=== PATIENT | male | born 1975 | race Caucasian/White ===

== ENCOUNTER 2016-11-01 03:37 | Emergency (ER) | payer MEDICAID ==
--- NOTE | ~2016-11-01 | EKG ---
PATIENT: HOWARD HAYES UNIT #: [id number] Ventricular Rate: 128 BPM Atrial Rate: 128 BPM P-R Interval: 148 ms QRS Duration: 104 ms Q-T Interval: 402 ms QTC Calculation(Bezet): 586 ms P [place]: 38 degrees Calculated R [place]: 90 degrees Calculated T [place]: 31 degrees Diagnosis Line: Sinus tachycardia with occasional Premature Diagnosis Line: ventricular complexes Diagnosis Line: Rightward axis Diagnosis Line: Borderline ECG Diagnosis Line: No previous ECGs available Diagnosis Line: Confirmed by AMERICA FOX MD ([id number]) on Diagnosis Line: 11/01/2016 9:06:05 AM INTERPRETING MD: RUDDY DUNN
--- NOTE | ~2016-11-01 | CT16 ---
[facility] A Service of [facility] RADIOLOGY TEXT RESULTS PATIENT: HOWARD HAYES LOCATION: [facility] : 75 UNIT #: [id number] AGE: [address]: Vidhi Khan MD SEX: M ORDER DR: [id number] [facility] [address] [place], [place] [address] [id number] E MR#: [id number] Acc #: [id number] NAME: HOWARD HAYES : 1975 SEX: M STUDY DATE/TIME: 11/01/2016 7:02 UNIT: [facility] ROOM: STUDY DESCRIPTION: CT Angio Chest for PE Attending Physician: Vidhi Khan M.D. Ordering Physician: Jett Mcleod P.A.-C. MEDICAL IMAGING REPORT This report is preliminary unless electronic signature is present EXAM CT angiography chest for PE 11/01/2016 HISTORY Chest pain, short of air. Abdomen pain today getting worse. Left side chest pain left side [address] pulmonary angiography performed with intravenous administration of 100 mL Isovue-370. Three-dimensional reconstructions performed through the pulmonary arteries. Comparison is 07/05/2015. This CT examination was performed with one or more of the following radiation dose reduction techniques: automatic exposure control, adjustment of mA and/or kV according to patient size, and iterative reconstruction. Thyroid unremarkable. No axillary, mediastinal or hilar adenopathy. Heart is normal in size. No pleural effusions. Liver appears somewhat diminished in density suggesting fatty infiltration. No focal hepatic parenchymal abnormality. The gallbladder, spleen, pancreas and adrenal glands are unremarkable. No hydronephrosis. No perinephric inflammatory change, cystic or solid mass lesion suggested. CT PELVIS: No inguinal adenopathy. The urinary bladder is unremarkable. No pelvic or retroperitoneal adenopathy. The esophagus, stomach, small bowel remarkable. I believe the patient retains a normal appendix. There does appear to be a small appendicolith in the proximal appendix. There is no appendiceal inflammatory change. The colon is unremarkable. Pulmonary parenchyma shows stable bleb right lung base. There is no clear indication of acute infectious or inflammatory disease. 6 mm noncalcified nodule in the right lower lobe unchanged from June 2015. In the left lower lobe, there is a lobulated nodule measuring 1.7 cm x 1 cm x 2.2 cm. It previously measured 1.6 cm x 1.4 cm x 2.2 cm. It does appear to have decreased slightly in volume from the prior examination. Stability to [facility] A Service of [facility] RADIOLOGY TEXT RESULTS PATIENT: HOWARD HAYES LOCATION: [facility] : 75 UNIT #: [id number] AGE: [address]: Vidhi Khan MD SEX: M ORDER DR: decreasing size over this time interval would favor benign etiology. Malignancy remains in the differential diagnosis though is felt less likely. Please correlate with any interval diagnostic assessment. Correlation with PET/CT may remain valuable if not performed in the interval. No entirely new nodules are seen. There is no evidence of acute infectious or inflammatory disease. No pneumothorax. Pulmonary arteries are well opacified. No PE. Dilatation of the aortic root measuring 4.2 cm in diameter at level of sinuses of Valsalva. No change from prior study. Remainder of the visualized aorta is normal in caliber. The visualized aortic branch vessels are patent. The bony structures show degenerative change in the spine. There is no acute-appearing bony abnormality. Study degraded by patient obesity. IMPRESSION 1. Study degraded by patient obesity. No PE. The aortic root is dilated at 4.2 cm in diameter at level of sinuses of Valsalva. No change from June 2015. Remainder of aorta normal in caliber. No dissection. Visualized aortic branch vessels are patent. 2. There is no evidence of acute pulmonary disease. Stable 6 mm noncalcified nodule in the right lower lobe unchanged from studies dating to 2010 and felt to be benign in nature. There is a lobulated posteromedial left lower lobe nodule measuring 1.7 cm x 1 cm x 2.2 cm, previously 1.6 cm x 1.4 cm x 2.2 cm in June 2015. It does appear to have decreased some in overall volume from the prior examination. Stability to slight decrease in size from June 2015 would favor benign etiology but the nature of this nodule remains unclear. Please correlate with any diagnostic assessment performed in the interval. On prior study, CT/PET scan was recommended for further assessment. Please correlate with any interval CT/PET scan. CT/PET scan may provide additional characterization at this time as well if not performed in the interval. 3. Fatty infiltration of the liver. No acute abnormality seen below diaphragm. Dictated by... Jett Campos M.D. THIS IS AN ELECTRONICALLY VERIFIED REPORT Jett Campos M.D. at 11/04/2016 7:52 AM KASEY/adan TD: 11/01/2016 10:32 JOB #: [id number] [facility] A Service of [facility] RADIOLOGY TEXT RESULTS PATIENT: HOWARD HAYES LOCATION: [facility] #: [id number] : 75 UNIT #: [id number] AGE: [address]: Vidhi Khan MD SEX: M ORDER DR: MEDICAL IMAGING REPORT Page 1 of 1 COPY
--- NOTE | ~2016-11-01 | CT2 ---
[facility] A Service of [facility] RADIOLOGY TEXT RESULTS PATIENT: HOWARD HAYES LOCATION: [facility] : 75 UNIT #: [id number] AGE: [address]: Vidhi Khan MD SEX: M ORDER DR: [id number] [facility] [address] [place], [place] [address] [id number] E MR#: [id number] [facility] #: [id number] NAME: HOWARD HAYES : 1975 SEX: M STUDY DATE/TIME: 11/01/2016 7:02 UNIT: [facility] ROOM: STUDY DESCRIPTION: CT Abd and Pelv W Cont Attending Physician: Vidhi Khan M.D. Ordering Physician: Jett Mcleod P.A.-C. MEDICAL IMAGING REPORT This report is preliminary unless electronic signature is present EXAM CT abdomen and pelvis 11/01/2016 HISTORY Chest pain, short of air. Abdomen pain today, getting worse. Left side chest pain. TECHNIQUE CT of the abdomen and pelvis performed with intravenous administration of 100 mL Isovue-370. This CT exam was performed with one or more of the following radiation dose reduction techniques: automatic exposure control, adjustment of mA and/or kV according to patient size, and iterative reconstruction. COMPARISON No comparison CT abdomen and pelvis. Please see today's dedicated CT chest for discussion of findings above diaphragm. FINDINGS CT ABDOMEN: The liver appears relatively low in overall density, suggesting fatty infiltration. The liver is enlarged, measuring 21 cm in craniocaudal extent. No suspicious focal abnormality. There is a calcified granuloma suggested in the posterior right hepatic lobe. The gallbladder, spleen, pancreas, adrenal glands, and kidneys are unremarkable. No hydronephrosis. No perinephric inflammatory change. CT PELVIS: No inguinal adenopathy. The urinary bladder is unremarkable. No free fluid in the pelvis. There is no pelvic or retroperitoneal adenopathy. The distal esophagus, stomach, and small bowel unremarkable. The appendix shows no acute abnormality. There is a small appendicolith in the proximal appendix with no appendiceal inflammatory change. The colon is unremarkable. [facility] A Service of [facility] & [facility] RADIOLOGY TEXT RESULTS PATIENT: HOWARD HAYES LOCATION: [facility] : 75 UNIT #: [id number] AGE: [address]: Vidhi Khan MD SEX: M ORDER DR: Aorta normal in caliber. Degenerative changes in the spine. There is moderate to severe compression deformity of the L2 vertebral body. This is very difficult to assess, given CT artifact related to the patient's marked obesity. The appearance suggests chronic compression deformity. I see no acute-appearing fracture plane. There is retropulsion of the posterosuperior L2 vertebral body cortex with mild central spinal canal narrowing suggested. The L1-L2 and L2-L3 neural foramina are patent without clear indication of exiting nerve impingement. There is mild loss of height in the T11 vertebral body, also felt to be chronic in time course. IMPRESSION 1. Study is limited in the absence of enteric contrast. Study also somewhat limited secondary to the patient's obesity. No clearly acute abnormality is seen within the abdomen or pelvis. 2. Fatty infiltration of the liver. Hepatic enlargement. Liver measures about 21 cm in craniocaudal extent. No suspicious focal hepatic parenchymal abnormality. 3. Gallbladder, pancreas, kidneys unremarkable. 4. Tiny appendicolith at proximal appendix. Appendix otherwise normal in appearance. There is no evidence of appendiceal inflammation. 5. No small bowel or colonic dilatation. 6. Moderate to severe compression deformity L2 vertebral body. Appearance favors chronic time course. Mild posterosuperior vertebral body cortex retropulsion. No free fragment suggested. Only mild central spinal canal narrowing. No clearly acute bony abnormality. Assessment limited by technical factors described above. Dictated by... Jett Campos M.D. THIS IS AN ELECTRONICALLY VERIFIED REPORT Jett Campos M.D. at 11/04/2016 7:52 AM KASEY/mahesh TD: 11/01/2016 11:39 JOB #: [id number] MEDICAL IMAGING REPORT Page 1 of 1 COPY
[~2016-11-01 03:37] MED LIST: CLEOCIN; COUMADIN5 MG PO; DILANTIN PO; KEPPRA500 M2 PO; LASIX PO; LISINOPRIL-HCTZ1 T17 PO; LISINOPRIL20 MG PO; LOVENOX SUBQ; LOVENOX120 MG/0.8 INJ; LOVENOX150 MG/ML SQ; NO MEDICATIONS; NORCO 10-325 TA1 TAB PO; NORCO1 TAB 10/3; OXYCODONE HCL5 MG PO; OXYIR5 MG PO; PERCOCET7.5 PO; PHENYTOIN SODI100 M4 PO; PRINIVIL20 M1 PO; ROXICODONE30 M1; TYLENOL #3 PO; TYLENOL/CODEINE1 TA1 PO; XARELTO15 MG PO; XARELTO20 MG PO
[2016-11-01 05:01] LABS: POC - CKMB <1.0 ng/mL (0.0-7.9); POC - TROPONIN <0.05 ng/mL (<=0.05)
[2016-11-01 05:03] LABS: URINE SOURCE CLEAN CATCH
[2016-11-01 05:11] LABS: BASOPHIL% 0.4 % (0-2.5); EOSINOPHIL# 0.1 X10e3 (0-0.7); EOSINOPHIL% 2.7 % (0.0-7.0); HEMOGLOBIN 16.8 gm/dL (13.0-16.0); LYMPHOCYTE# 1.5 X10e3 (1.0-3.5); LYMPHOCYTE% 28.9 % (17.0-45.0); MEAN CELL VOLUME 90.2 FL (83-96); MEAN CORPUSCULAR HEMOGLOBIN 30.9 PG (28-34); MEAN CORPUSCULAR HGB CONC 34.2 g/dL (30-36); MEAN PLATELET VOLUME 7.5 FL (6.5-11.5); MONOCYTE# 0.5 X10e3 (0-1.0); MONOCYTE% 10.1 % (3.0-12.0); NEUTROPHIL% 57.9 % (40-75); PLATELET COUNT 155 X10e3 (140-420); RED BLOOD COUNT 5.44 X10e (3.90-5.60); RED CELL DISTRIBUTION WIDTH 14.4 % (11.0-15.5); WHITE BLOOD COUNT 5.2 X10e3 (4.0-10.5)
[2016-11-01 05:20] LABS: DIFF IND NO
[2016-11-01 06:19] LABS: ALBUMIN SERUM 4.1 g/dL (3.5-5.0); ALKALINE PHOSPHATASE 76 U/L (32-92); ALT (SGPT) 40 U/L (10-40); AST (SGOT) 52 U/L (10-42); BILIRUBIN, DIRECT 0.2 mg/dL (0.0-0.2); BILIRUBIN,INDIRECT 0.5 mg/dL (0.0-0.9); BILIRUBIN,TOTAL 0.7 mg/dL (0.2-2.0); BLOOD UREA NITROGEN 9 mg/dL (9-23); BUN/CREATININE RATIO 12.85; CALCIUM SERUM 9.3 mg/dL (8.4-10.2); CARBON DIOXIDE 25 mmol/L (22-31); CHLORIDE 99 mmol/L (100-111); CREATININE SERUM 0.7 mg/dL (0.6-1.4); GLOM FILT RATE Estimated 117.3 mL/min (>60); GLUCOSE FASTING 120 mg/dL (70-110); LIPASE 60 U/L (22-51); POTASSIUM 3.2 mmol/L (3.5-5.1); PROTEIN TOTAL SERUM 7.5 g/dL (6.0-8.3); SODIUM 137 mmol/L (135-145)
[2016-11-01 06:20] LABS: DILANTIN (PHENYTOIN) <2.5 ug/mL (10.0-20.0)
[2016-11-01 06:24] LABS: URINE APPEARANCE CLEAR; URINE BILIRUBIN NEG (NEG); URINE BLOOD TRACE (NEG); URINE COLOR DK YELLOW; URINE GLUCOSE NEG (NEG); URINE KETONE NEG (NEG); URINE LEUKOCYTE ESTERASE NEG (NEG); URINE NITRATE NEG (NEG); URINE PROTEIN 3+ (NEG); URINE SPECIFIC GRAVITY 1.018 (1.003-1.035)
[2016-11-01 06:29] LABS: URINE BACTERIA AUWI NEG (NEGATIVE); URINE SQUAMOUS EPITHELIAL CELL OCC /[HPF]; UWBCS1 AUWI 0-2 (0-5)
[2016-11-01 06:42] LABS: CULTURE INDICATED? NO; U HYALINE CASTS AUWI 25-50 /[LPF]; URINE AMORPHOUS SEDIMENT AMORP URATES; URINE YEAST PRESENT
[2016-11-01 06:56] LABS: POC - CKMB <1.0 ng/mL (0.0-7.9); POC - TROPONIN <0.05 ng/mL (<=0.05)
== END 2016-11-01 10:06 | disposition home or self-care (01) ==
LOC: CED 03:37
PROVIDERS: Emergency Medicine; Physician Assistant
DX: R10.84 Generalized abdominal pain (principal); R11.2 Nausea with vomiting, unspecified; R19.7 Diarrhea, unspecified; R07.9 Chest pain, unspecified; R06.02 Shortness of breath; G40.909 Epilepsy, unspecified, not intractable, without status epilepticus; Z86.718 Personal history of other venous thrombosis and embolism; Z86.711 Personal history of pulmonary embolism
CPT/HCPCS: 36415; 71275; 74177; 80048; 80076; 80185; 81003; 82553; 83690; 84484; 85025; 93005; 96361; 96374; 96375; 99284; C9113; J2405; Q9967

== ENCOUNTER 2016-11-20 12:32 | Inpatient (IN) | payer MEDICAID ==
[~2016-11-20] VITALS: Ht 195.6 cm; Wt 190.0 kg
--- NOTE | ~2016-11-20 | DS ---
Unit #: [id number] #: [id number] Patient: HOWARD HAYES [id number] [facility] [address] [place], [place] [address] [id number] I MR#: [id number] NAME: HOWARD HAYES ROOM: 550 Age: 41 Sex: M Admission Date: 11/20/2016 : 1975 Discharge Date: Attending Physician: Charmaine Castro M.D. Primary Care Physician: No Primary Care Physician DISCHARGE SUMMARY ADDENDUM The patient fell in the hospital, and he insisted he wanted MRI of his back. Because of morbid obesity, the patient needs to go to [facility] for open MRI. MRI of the lumbar spine shows chronic compression fracture at L2 vertebral body, height loss of 65% to 75%. When compared to previous study, more prominence of epidural fat throughout the lumbar spine; varying degrees of narrowing of thecal sac present; bulges noted at multiple levels, worse at L4-L5 with moderately severe narrowed thecal sac. Currently the patient is ambulating with mild pain. The patient is receiving Lortab. I gave prescription for Lortab. I recommended to him that he needs to see a spinal doctor. We do not have a spine surgeon at [facility] who can do any surgery, so he will follow with his spine doctor of his choice. The patient understands the instructions that he needs to see a spinal surgeon. Follow with family physician in 1 week time. Follow with Dr. Cosby for PE in 1 week time. Continue with Xarelto. The patient was given Xarelto and Lortab prescriptions. NOTE: Discharge time taken is 31 minutes. Dictated by... Obie Pelayo TD: 11/26/2016 15:31 JOB #: [id number] DISCHARGE SUMMARY Page 1 of 1 X Charmaine Castro MD DISCHARGE SUMMARY
--- NOTE | ~2016-11-20 | CT16 ---
[facility] A Service of [facility] RADIOLOGY TEXT RESULTS PATIENT: HOWARD HAYES LOCATION: C5 550-01 : 75 UNIT #: [id number] AGE: [address]: Charmaine Castro MD SEX: M ORDER DR: [id number] [facility] [address] [place], [place] [address] [id number] E MR#: [id number] Acc #: [id number] NAME: HOWARD HAYES. : 1975 SEX: M STUDY DATE/TIME: 11/20/2016 15:40 UNIT: [facility] ROOM: STUDY DESCRIPTION: CT Angio Chest for PE Attending Physician: Garland Smith D.O. Ordering Physician: Garland Smith D.O. Primary Care Physician: No Primary Care Physician MEDICAL IMAGING REPORT This report is preliminary unless electronic signature is present EXAM Chest CT angiogram with contrast. DATE OF STUDY 11/20/2016 PROCEDURE Axial contrast-enhanced chest CT angiogram with three-dimensional reformats. Two contrast administration and imaging runs were performed due to difficulty with bolus timing on the initial scan. This CT exam was performed with one or more of the following radiation dose reduction techniques: automatic exposure control, adjustment of mA and/or kV according to patient size, and iterative reconstruction. CLINICAL HISTORY Right leg swelling and pain behind right knee, shortness of air and dyspnea for 2 weeks. COMPARISON Comparison exam is dated 11/01/2016 FINDINGS There is no consolidation or effusion or pneumothorax. Solid noncalcified nodules in both lower lobes are seen. Please see lengthy discussion in the report of the 11/01/[address] regarding management and followup recommendations. No new nodules are seen. Bolus timing is good and the study is unequivocally positive for moderately extensive pulmonary embolism involving multiple right upper lobe branches, as well as several right lower lobe segmental branches, [facility] RADIOLOGY TEXT RESULTS PATIENT: HOWARD HAYES LOCATION: C[facility] 550 : 75 UNIT #: [id number] AGE: [address]: Charmaine Castro MD SEX: M ORDER DR: well as the left lingular and anterior basilar segmental branch. Images of the upper abdomen show fatty infiltration but are otherwise negative and the thoracic aorta remains normal in caliber. IMPRESSION 1. Study is not unequivocally positive for moderately extensive pulmonary embolism. There is embolization to the right upper lobe, multiple branches, and at least two right lower lobe segmental branches, the left lower lobe anterior basilar segmental branch and the lingular artery. 2. There is a normal thoracic aorta and there is fatty infiltration of the liver as seen previously. 3. There are noncalcified nodules in both the right lower and left lower lobes. Please see extensive dictated recommendations regarding followup of these nodules on the report of the 11/01/[address] angiogram. There has been no change in the lung parenchyma since the time of that exam. STAT * RESULT Dictated by... Arturo Cardenas M.D. THIS IS AN ELECTRONICALLY VERIFIED REPORT Arturo Cardenas M.D. at 11/21/2016 11:45 AM MAEGAN/tamar TD: 11/20/2016 16:58 JOB #: [id number] MEDICAL IMAGING REPORT Page 1 of 1 COPY
--- NOTE | ~2016-11-20 | MR112 ---
[facility] A Service of [facility] RADIOLOGY TEXT RESULTS PATIENT: HOWARD HAYES LOCATION: [facility] 550-01 : 75 UNIT #: [id number] AGE: [address]: Charmaine Castro MD SEX: M ORDER DR: [id number] [facility] [address] [place], [place] [address] [id number] I MR#: [id number] Acc #: [id number] NAME: HOWARD HAYES. : 1975 SEX: M STUDY DATE/TIME: 11/25/2016 13:02 UNIT: [facility] ROOM: [facility] STUDY DESCRIPTION: MR Lumbar WWo Contrast Attending Physician: Charmaine Castro M.D. Ordering Physician: Ana Young M.D. Primary Care Physician: Primary Care Physician No MEDICAL IMAGING REPORT This report is preliminary unless electronic signature is present EXAM MR of the lumbar spine with and without contrast, 11/25/2016 COMPARISON Plain films lumbar spine dated 04/25/2015, MRI lumbar spine without contrast dated 10/06/2008. HISTORY Status post fall on 11/23/2016. Increased low back pain and decreased mobility for the past two days. FINDINGS Multisequence multiplanar imaging of the lumbar spine was obtained without contrast. There is a fracture noted at the L2 vertebral body without any edema favoring chronic compression injury. It is new when compared to the prior MRI from 2008. Fracture lines extending vertically along with compression deformity of the endplates are noted. Maximal vertebral body height loss is probably about 65% to 70%. Minimal retropulsion of posterior superior fragment into the canal causing mild mass effect on the adjacent thecal sac is probably present. There is superior endplate compression deformity with small Schmorl's node in the superior and inferior endplate at L1. Small Schmorl's nodes are also noted in the L3 to L5 vertebral bodies. Chronic. No bone edema is seen. The conus terminates at L1. Signal of conus and cauda equina are grossly unremarkable. Pre and paravertebral soft tissues do not demonstrate any significant abnormality. There is a mass effect on the thecal sac of the lumbar spine, predominantly in the posterior aspect due to some prominence of fat pad, particularly at the level of L3-4 to L5-S1 suspicious for epidural lipomatosis. It is noted to some extend along the anterior aspect also. Pre and paravertebral soft tissues do not demonstrate any significant abnormality. [facility] A Service of [facility] RADIOLOGY TEXT RESULTS PATIENT: HOWARD HAYES LOCATION: [facility] : 75 UNIT #: [id number] AGE: [address]: Charmaine Castro MD SEX: M ORDER DR: L1-2: Disc osteophyte complex with mild bilateral facet changes. No significant neural foraminal narrowing. There is some mass effect on the thecal sac along the lateral aspect on both sides causing narrowing of the thecal sac. New. L2-3: Disc osteophyte complex without neural foraminal narrowing. Mild bilateral facet changes are noted. Prominent epidural fat is seen on both sides of the thecal sac causing [id number] mass effect on the thecal sac, new when compared to the prior study. L3-4: Concentric disc bulge with mild bilateral facet changes. No significant neural foraminal narrowing. There is some prominence of epidural fat pad noted on both sides of the thecal sac causing moderate narrowing. L4-5: Moderate disc bulge with superimposed right to left central protrusion. Mild bilateral facet changes are noted. There are bilateral foraminal to extraforaminal broad-based protrusions with mild inferior bilateral neural foraminal narrowing and mild bilateral lateral recess encroachment. L5-S1: Disc osteophyte complex with mild bilateral facet hypertrophic changes. Mild bilateral neural foraminal narrowing is noted along the inferior aspect. Thecal sac is very narrowed at this level. It is likely due to prominence of epidural fat, new when compared to the prior study. Previously noted large disc extrusion at L5-S1 is now not seen. IMPRESSION 1. Chronic compression fracture of L2 vertebral body is noted with a maximum vertebral body height loss of 65% to 75%. There is mild retropulsion of bony fragment posteriorly into the canal causing mild mass effect on the adjacent thecal sac, new since 2008. 2. When compared to the previous study there is more prominence of the epidural fat throughout the lumbar spine causing varying degrees of narrowing of the thecal sac. It is new since prior study and is suggestive of epidural lipomatosis. 3. Bulges are noted at multiple levels, but relatively worse at L4-5 with right to left central broad-based protrusion with mild bilateral neural foraminal narrowing and mild bilateral lateral recess encroachment with moderate to severely narrowed thecal sac. 4. There is a very tiny thecal sac noted at the level of L5-S1. This has to be noted, particularly when doing lumbar punctures. Previously noted large disc extrusion at L5-S1 is now not seen. 5. Refer above to the detailed report. STUDY WAS PERMORMED AT [facility] A Service of [facility] RADIOLOGY TEXT RESULTS PATIENT: HOWARD HAYES LOCATION: [place] [address] : 75 UNIT #: [id number] AGE: [address]: Charmaine Castro MD SEX: M ORDER DR: Dictated by... Chan Palafox M.D. THIS IS AN ELECTRONICALLY VERIFIED REPORT Chan Palafox M.D. at 11/27/2016 3:17 PM CPR/ljasael TD: 11/25/2016 23:20 JOB #: [id number] MEDICAL IMAGING REPORT Page 1 of 1 COPY
--- NOTE | ~2016-11-20 | DS ---
Unit #: [id number] #: [id number] Patient: HOWARD HAYES [id number] [address] [place], [place] [address] [id number] I MR#: [id number] NAME: HOWARD HAYES. ROOM: 550 Age: Sex: M Admission Date: 11/20/2016 : 1975 Discharge Date: Attending Physician: Charmaine Castro M.D. Primary Care Physician: Primary Care Physician No DISCHARGE SUMMARY DISCHARGE DIAGNOSES 1. Bilateral extensive pulmonary embolism 2. Noncompliance with Xarelto 3. History of deep venous thrombosis and pulmonary embolism 4. Left lower lobe nodule, needs outpatient follow up with Dr. Petersen 5. Transaminitis 6. History of seizure disorder, on Keppra 7. Chronic back pain 8. Morbid obesity CONSULTS Dr. Nicola Cosby PROCEDURES None DIAGNOSTIC STUDIES LABORATORY: WBC 4.0, hemoglobin 15.0, platelets 114. Troponin negative. IMAGING: CT angio chest shows moderately extensive pulmonary embolism. CARDIOLOGY: Echocardiogram shows ejection fraction 50%. Moderately enlarged right atrium, moderately dilated right ventricle. ALLERGIES None DISCHARGE MEDICATIONS 1. Xarelto, start as directed. After completion of the starter pack continue 20 mg p.o. daily 2. Keppra 750 p.o. b.i.d. HOSPITAL COURSE 41-year-old admitted with leg swelling. 1. Acute bilateral extensive pulmonary embolism. The patient does have history of deep venous thrombosis and pulmonary embolism. He is noncompliant with his Xarelto. The patient was started on IV heparin. The patient is seen by pulmonary, Dr. Petersen and Dr. Cosby. They recommended back on Xarelto. I gave him a starter pack followed by 20 mg p.o. daily. Prescription given. I advised him to take the medication as directed and the patient cannot miss it. I also educated him that he has a high risk for recurrent pulmonary embolism Unit #: [id number] #: [id number] Patient: HOWARD HAYES if he does not take his medication and patient understood the instructions. 2. Enlarged right ventricle likely from pulmonary embolism, also might have possible obstructive sleep apnea, follow up outpatient. 3. Lung nodule, stable. The patient needs repeat CT in six months time. Dr. Petersen is going to follow. DISCHARGE INSTRUCTIONS Discharge home. Follow with family physician in one weeks' time and follow with Dr. Petersen in two to three weeks time. Follow with Dr. Cosby in one weeks' time. TIME SPENT Discharge time taken is 31 minutes Dictated by... Charmaine Castro M.D. KENDRICK/flavio TD: 11/23/2016 11:23 JOB #: [id number] CC: Adin Petersen M.D. DISCHARGE SUMMARY Page 1 of 1 X Charmaine Castro MD X DISCHARGE SUMMARY
--- NOTE | ~2016-11-20 | CT71 ---
[facility] A Service [facility] RADIOLOGY TEXT RESULTS PATIENT: HOWARD HAYES LOCATION: [facility] : 75 UNIT #: [id number] AGE: [address]: Charmaine Castro MD SEX: M ORDER DR: [id number] [address] [place], [place] [address] [id number] I MR#: [id number] Acc #: [id number] NAME: HOWARD HAYES. : 1975 SEX: M STUDY DATE/TIME: 11/23/2016 15:15 UNIT: [facility] ROOM: [facility] STUDY DESCRIPTION: CT Head Wo Contrast Attending Physician: Charmaine Castro M.D. Ordering Physician: Charmaine Castro M.D. Primary Care Physician: No Primary Care Physician MEDICAL IMAGING REPORT This report is preliminary unless electronic signature is present EXAM Noncontrast head CT. HISTORY Fell 1 hour ago in hospital room, hit back of head. Questionable loss of consciousness. Admitted for bilateral pulmonary emboli. COMPARISON CT 04/16/[address] exam was performed with one or more of the following radiation dose reduction techniques: automatic exposure control, adjustment of mA and/or kV according to patient size, and iterative reconstruction. Axial noncontrast imaging brain was performed. FINDINGS Slight motion degradation. No definite hemorrhage or abnormal extraaxial fluid collections. Ventricles, sulci and basilar cisterns unremarkable. Small right maxillary sinus mucous retention cyst. IMPRESSION No acute intracranial abnormality identified. Dictated by... Jennifer Resendiz M.D. THIS IS AN ELECTRONICALLY VERIFIED REPORT Jennifer Resendiz M.D. at 11/23/2016 9:39 PM [facility] Service [facility] RADIOLOGY TEXT RESULTS PATIENT: HOWARD HAYES LOCATION: [facility] : 75 UNIT #: [id number] AGE: [address]: Charmaine Castro MD SEX: M ORDER DR: Jerald TD: 11/23/2016 18:45 JOB #: [id number] MEDICAL IMAGING REPORT Page 1 of 1 COPY
--- NOTE | ~2016-11-20 | CO ---
Unit #: [id number] #: [id number] Patient: HOWARD HAYES [id number] [address] [place], [place] [address] [id number] I MR#: [id number] NAME: HOWARD HAYES. ROOM: 550 Age: 41 Sex: M Admission Date: 11/20/2016 : 1975 Attending Physician: Charmaine Castro M.D. CONSULTATION REPORT CHIEF COMPLAINT Recurrent PE, DVT, morbid obesity, bilateral lung nodules, stable, nonsmoker. HISTORY OF PRESENT ILLNESS This is a 41-year-old male who I saw in 2012. Patient had a DVT and PE. His hypercoagulable workup was normal. Because of his obesity, he was on lifelong Xarelto. He recently quit. Patient came with shortness of breath and chest pain. Patient had a CT of the chest, PE protocol, on November 20, 2016, and there are bilateral PEs. Patient had a recent CT of the chest during October 2016, and patient has bilateral lung nodules. The left side is about 2.2 cm. They are stable. At present, he is taking heparin and he is tolerating. He could not buy Xarelto because he changed jobs and lost insurance. PAST MEDICAL HISTORY 1. Recurrent PEs and DVTs, workup normal. 2. Sleep apnea. 3. Morbid obesity. PAST SURGICAL HISTORY None. ALLERGIES None. SOCIAL HISTORY No smoking, no alcohol, and no drugs. FAMILY HISTORY Father and mother had malignancy. He is not sure of the exact type. REVIEW OF SYSTEMS CONSTITUTIONAL: No fever, no chills, no sweats, no weight loss. EYES: No visual symptoms. EARS, NOSE AND THROAT: There is no runny nose or sore throat or difficulty hearing. CARDIOVASCULAR: No chest pain. No shortness of breath. No palpitations. No orthopnea. No PND. RESPIRATORY: As mentioned above. GASTROINTESTINAL: No nausea, vomiting, diarrhea, constipation, hematochezia or melena. Unit #: [id number] #: [id number] Patient: HOWARD HAYES GENITOURINARY: No urinary frequency, hesitancy or urgency. No blood in the urine. MUSCULOSKELETAL: No muscle or joint pain. NEUROLOGIC: No headache. No numbness or tingling. No weakness. No seizure. PSYCHIATRIC: No anxiety, depression or mood disturbance. ENDOCRINE: No excessive urination or thirst. DERMATOLOGIC: No rash or change in the skin. ALLERGIC/IMMUNOLOGIC: No symptoms. HEMATOLOGIC/LYMPHATIC: Denies any symptoms. PHYSICAL EXAMINATION VITAL SIGNS: Temperature 99.4, pulse 80, respiratory rate 20, O2 saturation on 2 liters 95%, and blood pressure 126/82. Weight is 440 pounds. BMI is 52. ASSESSMENT AND PLAN This 41-year-old male has the following active issues: 1. Pulmonary embolism. Patient has had recurrent pulmonary emboli. He also has a history of deep venous thrombosis. In my office in 2012, I did hypercoagulable workup which was all normal. This is most likely due to his morbid obesity. He is on lifelong anticoagulation. At present, he is on heparin. In a couple of days, he can go home on Xarelto. 2. Obesity. I had an extensive discussion with patient. I counseled him to cut down on caloric intake and increase physical activity. He may benefit from Lap-Band. 1. Dictated by... Obie Odonnell/augusto TD: 11/21/2016 22:02 JOB #: [id number] CONSULTATION REPORT Page 1 of 1 X Elizabeth Cosby MD CONSULTATION REPORT
--- NOTE | ~2016-11-20 | HP ---
Unit #: [id number] #: [id number] Patient: HOWARD HAYES [id number] [facility] [address] [facility]. [place], [place] [address] [id number] MR#: [id number] NAME: HOWARD HAYES. ROOM: Age: 41 Sex: M Admission Date: 11/20/2016 : 1975 Attending Physician: Garland Smith D.O. HISTORY AND PHYSICAL CHIEF COMPLAINT Right leg swelling and pain behind knee. HISTORY OF PRESENT ILLNESS The patient is a 41-year-old male with a past medical history of DVT/pulmonary emboli, seizure disorder, chronic back pain, and morbid obesity, who presented to the emergency department for evaluation of the above. The patient states that he has had approximately a one and a half week history of increasing right leg pain and pain behind the knee similar to when he has had a blood clot in the past. He also reports increasing shortness of breath and intermittently productive cough. He states that he has had paroxysmal nocturnal dyspnea. He states that he has had pain in the mid chest that he describes as "cramping." It has been intermittent in nature. In the emergency department, initial pulse and blood pressure were 104 and 146/92, respectively, and oxygen saturation was 98% on room air. A right lower extremity venous Doppler was done and negative. CT of the chest, PE protocol, showed moderately extensive bilateral PEs. He is being admitted to [facility] for evaluation and further treatment. PAST MEDICAL HISTORY 1. Admission to [facility] July 04-2015, for right lower extremity DVT. He was noted to have a lung mass during that admission and was supposed to follow up with Dr. Petersen. However, he has not followed up. 2. Seizure disorder, maintained on Keppra. The patient states that his last seizure was one to two years ago. He is not followed by Neurology. 3. History of PE/DVT, noncompliant with Xarelto. He states that his last dose was at least a week ago. 4. Chronic back pain. 5. History of L2 compression fracture. 6. Hypertension. 7. Morbid obesity with a BMI of 52. PAST SURGICAL HISTORY None. SOCIAL HISTORY Patient lives alone. He works at [employer]. He reports occasional alcohol use. There is no tobacco use. Unit #: [id number] #: [id number] Patient: HOWARD HAYES FAMILY HISTORY Notable for factor V Leiden deficiency on his mother's side, possibly a maternal aunt REVIEW OF SYSTEMS A complete review of systems is negative except as indicated in the History of Present Illness. PHYSICAL EXAMINATION VITAL SIGNS: Temperature is 98.6, pulse 104, respirations 16, blood pressure 146/92, and oxygen saturation is 98% on room air. GENERAL: Patient is a very pleasant male who is awake, alert, and in no acute distress. HEENT: Head is atraumatic. Mucous membranes are moist. NECK: Supple. Trachea is midline. CARDIOVASCULAR: Regular rate and rhythm. LUNGS: Clear to auscultation bilaterally with no increased work of breathing. ABDOMEN: Obese, soft, and nontender with bowel sounds present in all four quadrants. EXTREMITIES: Right lower extremity edema and swelling. NEUROLOGIC: Patient is awake and alert. He follows commands. PSYCHIATRIC: Mood and affect are normal. Patient is cooperative. SKIN: Skin of examined areas is warm and dry. DIAGNOSTIC STUDIES LABORATORY: BNP is less than 5. Comprehensive metabolic panel notable for sodium of 134, glucose 128, and AST and ALT are 104 and 97, respectively. Troponin is less than 0.05. INR is 1. Complete blood count is completely normal. IMAGING: CT of the chest, PE protocol, shows moderately extensive pulmonary embolism bilaterally. Noncalcified nodules in both right lower and left lower lobes are noted. CARDIOLOGY: EKG shows normal sinus rhythm with a rate of 87 beats per minute. ASSESSMENT The patient is a 41-year-old male with: 1. Bilateral pulmonary emboli. 2. Noncompliance with Xarelto. The patient states that his last dose was about a week ago. 3. History of deep venous thrombosis/pulmonary embolism. 4. Left lower lobe nodule. The patient had a CT of the chest, PE protocol, on November 01, 2016, that showed a lobulated posteromedial left lower lobe nodule that appeared to have slightly decreased in overall volume from prior exam in June 2015. PET CT was recommended for additional characterization of the nodule. The patient has seen Dr. Petersen in the past but not as an outpatient. 5. Transaminitis. 6. Seizure disorder, maintained on Keppra. 7. Chronic back pain. 8. Morbid obesity with a body mass index of 52. PLAN 1. Admit to intermediate level. Unit #: [id number] #: [id number] Patient: HOWARD HAYES 2. Normal saline at 75 mL/hour. 3. Healthy-heart diet. 4. High-intensity heparin drip per protocol for PE. 5. Consult Dr. Cosby regarding PE. 6. A 2D echo for further evaluation of possible right heart strain. 7. Serial cardiac enzymes. 8. Consult Dr. Petersen regarding lung nodule. 9. P.r.n. morphine. 10. P.r.n. Zofran. 11. Repeat labs in the morning. 12. Additional workup and consultants based on above. 1. Dictated by Obie Horton/augusto TD: 11/20/2016 18:13 JOB #: [id number] HISTORY AND PHYSICAL Page 1 of 1 X Ana Young MD X HISTORY AND PHYSICAL
--- NOTE | ~2016-11-20 | CO ---
Unit #: [id number] #: [id number] Patient: HOWARD MERCADO [id number] [address] [place], [place] [address] [id number] I MR#: [id number] NAME: HOWARD MERCADO. ROOM: 550 Age: 41 Sex: M Admission Date: 11/20/2016 : 1975 Attending Physician: Charmaine Castro M.D. Primary Care Physician: No Primary Care Physician CONSULTATION REPORT HISTORY OF PRESENT ILLNESS Mr. Mercado is a 41-year-old white male that I have seen in 2016. He has a history of DVT and pulmonary emboli and a pulmonary nodule. He presented for evaluation of increased right lower extremity pain and dyspnea. He said he is normally maintained on Xarelto and is followed by Dr. Cosby, but he has not followed up with him nor did he follow up with me after being requested to in 2015. He noted increasing shortness of breath over the last couple of weeks and presented to the emergency room. CT scan of the chest revealed pulmonary emboli in the right upper lobe multiple branches and at least two right lower lobe segmental branches, left lower lobe anterobasilar segment branch and the lingular artery. There were noncalcified nodules in both right lower and left lower lung. These have been evaluated on November [address] he [address] a CT scan done. On that CT scan, there was no evidence of pulmonary embolus. There was an extensive rendering of the CT scan. There was a stable 6 mm noncalcified nodule in the right lower lobe unchanged from studies in 2010, consistent with a benign nodule. There was also a lobulated posteromedial left lower lobe nodule measuring 1.7 x 1 cm x 2.2 cm which had previously measured 1.6 x 1.4 x 2.2 in June 2015. Hence, smaller than previously noted in June 2015. We have been asked to see. As noted, he says he has not taken his Xarelto for at least the last couple of weeks. PAST MEDICAL HISTORY 1. History of right lower extremity DVT. 2. History of lung nodules as noted, no followup. 3. History of seizure disorder on Keppra. 4. History of PE/DVT, recently noncompliant with Xarelto. 5. Chronic back pain. 6. History of L2 compression fracture. 7. Hypertension. 8. Morbid obesity. PAST SURGICAL HISTORY Negative. MEDICATIONS Home medications listed: Keppra and Xarelto, but he has not been taking it. SOCIAL HISTORY Lives alone. Works at [employer]. 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 Denies illicit drugs. FAMILY HISTORY Unit #: [id number] #: [id number] Patient: HOWARD MERCADO Factor V Leiden deficiency in mother's side, possibly in maternal aunt. REVIEW OF SYSTEMS Otherwise negative except for mentioned above. A 10-point system. PHYSICAL EXAMINATION VITAL SIGNS: Blood pressure 155/91, pulse 103, respiratory rate 20, afebrile. HEENT: Normocephalic and atraumatic. Pupils equal, round, and reactive. Sclerae nonicteric. Nasal passages patent. Posterior pharynx Mallampati IV. NECK: Thick, supple. Trachea midline. No cervical or supraclavicular lymphadenopathy. LUNGS: Clear anterior and laterally. CARDIAC: Regular rate and rhythm. Could not appreciate murmur, rub, or gallop. ABDOMEN: Nontender. Bowel sounds present. EXTREMITIES: Right lower extremity edema, 1 to 2+ and some discoloration to the shins. NEUROLOGIC: Awake, oriented x3. Cranial nerves grossly intact. Muscle strength symmetric bilaterally. SKIN: Warm and dry. NEUROLOGIC: Affect calm. DIAGNOSTIC STUDIES LABORATORY: Room air saturation recorded in ER at 98%. Chemistries unremarkable. AST and ALT are 75 and 87 respectively. Cardiac enzymes are negative. BNP is less than 5. Coags normal. IMAGING: Right lower extremity venous Doppler negative for DVT. IMPRESSION 1. Bilateral pulmonary emboli. 2. Pulmonary nodules, stable to smaller, right lower lobe and left lower lobe (more dominant left lower lobe nodular density). 3. History of right deep venous thrombosis/pulmonary embolus. 4. Morbid obesity. 5. Probable obstructive sleep apnea, patient complains of history of snoring, frequent awakenings, restless sleep, and daytime sleepiness. 6. Seizure disorder. 7. Chronic pain. 8. Noncompliance with medications. 9. Hypertension. RECOMMENDATIONS Agree with anticoagulation and convert to oral anticoagulation. Dr. Cosby has followed. He will make recommendation in regard to that. Echocardiogram has been ordered to rule out pulmonary hypertension. He likely also has obstructive sleep apnea and will need evaluation and treatment for that. Certainly, that could also be a contributing factor to pulmonary hypertension if he has it. He also has the nodular densities which are most likely benign as they are stable and have not increased in size but will repeat CT scan of chest without contrast in six more months to document benignity. Unit #: [id number] #: [id number] Patient: HOWARD MERCADO Dictated by... Obie Smith/rashard TD: 11/21/2016 10:37 JOB #: [id number] CONSULTATION REPORT Page 1 of 1 X Adin Petersen MD X CONSULTATION REPORT
--- NOTE | ~2016-11-20 | DS ---
Unit #: [id number] #: [id number] Patient: HOWARD HAYES [id number] [address] [place], [place] [address] [id number] I MR#: [id number] NAME: HOWARD HAYES ROOM: 550 Age: 41 Sex: M Admission Date: 11/20/2016 : 1975 Discharge Date: Attending Physician: Charmaine Castro M.D. Primary Care Physician: No Primary Care Physician DISCHARGE SUMMARY ADDENDUM The patient was not discharged on 11/24/2015 because patient fell. CAT scan of the head is negative for any bleed. He is complaining of back pain. He does have chronic back pain. He wants IV morphine which I am giving before discharge. I gave prescription for Lortab. Patient was seen by physical therapy. They discharged him. According to them, patient is independent, ambulating in hallways. Patient needs to follow with PCP for back pain and follow with Dr. Cosby in one week time for his acute PE. The prescription has been given as recommended by Dr. Cosby. Discharge time taken is 31 minutes. Dictated by... Obie Pelayo/yin TD: 11/24/2016 12:31 JOB #: [id number] DISCHARGE SUMMARY Page 1 of 1 X Charmaine Castro MD X DISCHARGE SUMMARY
--- NOTE | ~2016-11-20 | EKG ---
PATIENT: HOWARD HAYES UNIT #: [id number] Ventricular Rate: 87 BPM Atrial Rate: 87 BPM P-R Interval: 160 ms QRS Duration: 98 ms Q-T Interval: 374 ms QTC Calculation(Bezet): 450 ms P Mobile: 57 degrees Calculated R Mobile: 87 degrees Calculated T Mobile: 71 degrees Diagnosis Line: Normal sinus rhythm Diagnosis Line: Normal ECG Diagnosis Line: When compared with ECG of 01-NOV-2016 03:57, Diagnosis Line: Premature ventricular complexes are no longer Diagnosis Line: Present Diagnosis Line: Nonspecific T wave abnormality no longer evident Diagnosis Line: in Inferior leads Diagnosis Line: Confirmed by JING ISSA MD ([id number]) on 11/20/2016 Diagnosis Line: 7:50:25 PM INTERPRETING MD: MAEGAN DUNN
--- NOTE | ~2016-11-20 | BMI ---
[facility] Nutrition Therapy DATE: 11/21/16 Patient: HOWARD HAYES Physician: SARBJIT Address: [address] [place] [address] Room/Bed: [address] [place] [address], Zip: [place] [address] Admit Date: 11/20/16 Date of : [birth year] Height: 6 5 Weight: 439 199.5 HIGH BMI NOTE: ANTHROPOMETRICS: HT: 6'5" WT: 199.5 KG BMI: 52.5 DIET: HEART HEALTHY RECOMMENDATIONS: 1. CONTINUE CURRENT DIET IN ORDER TO PROMOTE GRADUAL WEIGHT LOSS TOWARDS A HEALTHY BMI. Respectfully, KARON ANGELES RD, LD Food and Nutritional Services [facility] cc: client file
--- NOTE | ~2016-11-20 | US85 ---
[facility] A Service of [facility] RADIOLOGY TEXT RESULTS PATIENT: HOWARD HAYES LOCATION: [facility] : 75 UNIT #: [id number] AGE: [address]: Garland Smith DO SEX: M ORDER DR: [id number] [facility] [address] [place], [place] [address] [id number] MR#: [id number] Acc #: [id number] NAME: HOWARD HAYES. : 1975 SEX: M STUDY DATE/TIME: 11/20/2016 13:34 UNIT: KAL ROOM: STUDY DESCRIPTION: [employer] Attending Physician: Garland Smith D.O. Ordering Physician: Garland Smith D.O. Primary Care Physician: No Primary Care Physician MEDICAL IMAGING REPORT This report is preliminary unless electronic signature is present EXAM Right leg vein Doppler 11/20/2016 INDICATION Pain in the right leg for a few weeks with some shortness of air as well. No trauma. TECHNIQUE Venous ultrasound examination of the right lower extremity was performed using grayscale, spectral Doppler and color flow Doppler imaging. FINDINGS The examination is negative. There is no evidence of right lower extremity deep venous thrombus from the groin to the lower calf. Visualized greater saphenous vein is also patent. IMPRESSION Negative examination. No evidence of right lower extremity deep venous thrombosis. Dictated by... Ray Goetz Jr., M.D. THIS IS AN ELECTRONICALLY VERIFIED REPORT Ray Goetz Jr., M.D. at 11/20/2016 4:39 PM ALEXA/rosa TD: 11/20/2016 15:43 JOB #: [id number] MEDICAL IMAGING REPORT Page 1 of 1 COPY
[2016-11-20 13:28] LABS: BASOPHIL% 0.4 % (0-2.5); DIFF IND NO; EOSINOPHIL% 0.7 % (0.0-7.0); HEMATOCRIT 45.3 % (38.0-50.0); HEMOGLOBIN 15.9 gm/dL (13.0-16.0); LYMPHOCYTE% 18.5 % (17.0-45.0); MEAN CELL VOLUME 91.3 FL (83-96); MEAN CORPUSCULAR HGB CONC 35.1 g/dL (30-36); MEAN PLATELET VOLUME 7.2 FL (6.5-11.5); MONOCYTE# 0.4 X10e3 (0-1.0); MONOCYTE% 7.4 % (3.0-12.0); NEUTROPHIL# 3.8 X10e3 (1.5-7.1); PLATELET COUNT 150 X10e3 (140-420); RED BLOOD COUNT 4.97 X10e (3.90-5.60); RED CELL DISTRIBUTION WIDTH 15.2 % (11.0-15.5); WHITE BLOOD COUNT 5.2 X10e3 (4.0-10.5)
[2016-11-20 13:49] LABS: PROTHROMBIN TIME (PATIENT) 10.8 SECONDS (10.0-11.7)
[2016-11-20 13:53] LABS: POC - TROPONIN <0.05 ng/mL (<=0.05)
[2016-11-20 13:54] LABS: ALBUMIN SERUM 4.1 g/dL (3.5-5.0); BILIRUBIN, DIRECT 0.3 mg/dL (0.0-0.2); BILIRUBIN,INDIRECT 1.1 mg/dL (0.0-0.9); BILIRUBIN,TOTAL 1.4 mg/dL (0.2-2.0); BUN/CREATININE RATIO 13.33; CALCIUM SERUM 8.7 mg/dL (8.4-10.2); CREATININE SERUM 0.9 mg/dL (0.6-1.4); GLOM FILT RATE Estimated 105.7 mL/min (>60); POTASSIUM 4.8 mmol/L (3.5-5.1); PROTEIN TOTAL SERUM 7.2 g/dL (6.0-8.3)
[2016-11-20] MEDS ORDERED: XARELTO20 MG PO (17:37)
[2016-11-20] MEDS ORDERED: KEPPRA500 M1 PO (17:38)
[2016-11-20] MEDS ORDERED: NO MEDICATIONS (20:14)
[2016-11-20] MEDS ORDERED: KEPPRA500 M2 PO ×2 (21:16→21:19)
[2016-11-20] MEDS ORDERED: EFFEXOR75 M2 (21:16)
[2016-11-20] MEDS ORDERED: XARELTO15 MG PO (21:18)
[2016-11-20 22:13] LABS: %MB 1.5 % (0.0-4.0)
[2016-11-21 02:33] LABS: HEMATOCRIT 43.8 % (38.0-50.0); HEMOGLOBIN 15.1 gm/dL (13.0-16.0); MEAN CELL VOLUME 92.1 FL (83-96); MEAN CORPUSCULAR HEMOGLOBIN 31.7 PG (28-34); MEAN CORPUSCULAR HGB CONC 34.4 g/dL (30-36); MEAN PLATELET VOLUME 7.2 FL (6.5-11.5); RED BLOOD COUNT 4.75 X10e (3.90-5.60); RED CELL DISTRIBUTION WIDTH 15.3 % (11.0-15.5); WHITE BLOOD COUNT 4.9 X10e3 (4.0-10.5)
[2016-11-21 03:37] LABS: %MB 1.4 % (0.0-4.0); MB 2.4 ng/ml
[2016-11-21 03:51] LABS: ALBUMIN SERUM 3.9 g/dL (3.5-5.0); BILIRUBIN,TOTAL 0.8 mg/dL (0.2-2.0); BUN/CREATININE RATIO 13.33; CALCIUM SERUM 8.8 mg/dL (8.4-10.2); CREATININE SERUM 0.9 mg/dL (0.6-1.4); GLOM FILT RATE Estimated 105.7 mL/min (>60); POTASSIUM 4.5 mmol/L (3.5-5.1)
[2016-11-22 05:54] LABS: HEMATOCRIT 41.9 % (38.0-50.0); HEMOGLOBIN 14.4 gm/dL (13.0-16.0); MEAN CELL VOLUME 92.8 FL (83-96); MEAN CORPUSCULAR HEMOGLOBIN 31.8 PG (28-34); MEAN CORPUSCULAR HGB CONC 34.2 g/dL (30-36); MEAN PLATELET VOLUME 7.6 FL (6.5-11.5); RED BLOOD COUNT 4.52 X10e (3.90-5.60); RED CELL DISTRIBUTION WIDTH 15.5 % (11.0-15.5); WHITE BLOOD COUNT 3.1 X10e3 (4.0-10.5)
[2016-11-23 04:23] LABS: MEAN CELL VOLUME 92.5 FL (83-96); MEAN CORPUSCULAR HEMOGLOBIN 32.2 PG (28-34); MEAN CORPUSCULAR HGB CONC 34.8 g/dL (30-36); MEAN PLATELET VOLUME 7.2 FL (6.5-11.5); RED BLOOD COUNT 4.65 X10e (3.90-5.60); RED CELL DISTRIBUTION WIDTH 15.4 % (11.0-15.5)
[2016-11-24 04:59] LABS: HEMATOCRIT 43.8 % (38.0-50.0); HEMOGLOBIN 15.3 gm/dL (13.0-16.0); MEAN CELL VOLUME 92.5 FL (83-96); MEAN CORPUSCULAR HEMOGLOBIN 32.3 PG (28-34); MEAN CORPUSCULAR HGB CONC 34.9 g/dL (30-36); MEAN PLATELET VOLUME 7.2 FL (6.5-11.5); RED BLOOD COUNT 4.74 X10e (3.90-5.60); RED CELL DISTRIBUTION WIDTH 15.5 % (11.0-15.5)
[2016-11-24 05:08] LABS: PROTHROMBIN TIME (PATIENT) 10.9 SECONDS (10.0-11.7)
[2016-11-24 06:37] LABS: BUN/CREATININE RATIO 12.22; CALCIUM SERUM 9.2 mg/dL (8.4-10.2); CREATININE SERUM 0.9 mg/dL (0.6-1.4); GLOM FILT RATE Estimated 105.7 mL/min (>60); POTASSIUM 4.3 mmol/L (3.5-5.1)
[2016-11-24] MEDS ORDERED: LORTAB 5-325 M1 EACH PO (11:32)
[2016-11-26 05:33] LABS: BASOPHIL% 0.7 % (0-2.5); EOSINOPHIL# 0.1 X10e3 (0-0.7); EOSINOPHIL% 3.2 % (0.0-7.0); HEMATOCRIT 43.3 % (38.0-50.0); HEMOGLOBIN 15.2 gm/dL (13.0-16.0); LYMPHOCYTE# 1.2 X10e3 (1.0-3.5); LYMPHOCYTE% 32.7 % (17.0-45.0); MEAN CELL VOLUME 92.1 FL (83-96); MEAN CORPUSCULAR HEMOGLOBIN 32.4 PG (28-34); MEAN CORPUSCULAR HGB CONC 35.1 g/dL (30-36); MEAN PLATELET VOLUME 7.3 FL (6.5-11.5); MONOCYTE# 0.5 X10e3 (0-1.0); MONOCYTE% 13.2 % (3.0-12.0); NEUTROPHIL# 1.9 X10e3 (1.5-7.1); NEUTROPHIL% 50.2 % (40-75); PLATELET COUNT 129 X10e3 (140-420); RED BLOOD COUNT 4.71 X10e (3.90-5.60); RED CELL DISTRIBUTION WIDTH 15.5 % (11.0-15.5); WHITE BLOOD COUNT 3.8 X10e3 (4.0-10.5)
[2016-11-26 05:40] LABS: DIFF IND NO
[2016-11-26 07:03] LABS: BUN/CREATININE RATIO 18.88; CALCIUM SERUM 9.2 mg/dL (8.4-10.2); CREATININE SERUM 0.9 mg/dL (0.6-1.4); GLOM FILT RATE Estimated 105.7 mL/min (>60); POTASSIUM 4.4 mmol/L (3.5-5.1)
== END 2016-11-26 18:27 | disposition home or self-care (01) | DRG 175 ==
LOC: CED 12:32 → C5B 17:55 → CED 18:07 → C5B 11-21 07:46
PROVIDERS: Emergency Medicine; Family Medicine; Internal Medicine
PROC: B32TYZZ Computerized Tomography (CT Scan) of Left Pulmonary Artery using Other Contrast (ICD-10-PCS; principal; 2016-11-20)
PROC: B32SYZZ Computerized Tomography (CT Scan) of Right Pulmonary Artery using Other Contrast (ICD-10-PCS; 2016-11-20)
PROC: B24BZZZ Ultrasonography of Heart with Aorta (ICD-10-PCS; 2016-11-21)
DX: I26.99 Other pulmonary embolism without acute cor pulmonale (principal); J96.01 Acute respiratory failure with hypoxia; Z68.43 Body mass index [BMI] 50.0-59.9, adult; E66.01 Morbid (severe) obesity due to excess calories; M48.56XA Collapsed vertebra, not elsewhere classified, lumbar region, initial encounter for fracture; Z91.14 Patient's other noncompliance with medication regimen; Z86.718 Personal history of other venous thrombosis and embolism; Z86.711 Personal history of pulmonary embolism; R91.8 Other nonspecific abnormal finding of lung field; Z71.3 Dietary counseling and surveillance; M79.604 Pain in right leg; G40.909 Epilepsy, unspecified, not intractable, without status epilepticus; R74.0 Nonspecific elevation of levels of transaminase and lactic acid dehydrogenase [LDH]; G89.29 Other chronic pain; M54.9 Dorsalgia, unspecified; G47.33 Obstructive sleep apnea (adult) (pediatric); W19.XXXA Unspecified fall, initial encounter; Y92.239 Unspecified place in hospital as the place of occurrence of the external cause; I10 Essential (primary) hypertension
CPT/HCPCS: 36415; 70450; 71275; 72158; 80048; 80053; 80076; 82550; 82553; 83880; 84484; 85025; 85027; 85610; 85730; 93005; 93306; 93971; 94640; 94760; 96360; 97162; 97166; 99285; A9581; J1644; J1650; J2270; J2405; Q9967

== ENCOUNTER 2016-12-06 13:18 | Inpatient (IN) | payer MEDICAID ==
[~2016-12-06] VITALS: Ht 195.6 cm; Wt 186.0 kg
--- NOTE | ~2016-12-06 | PN ---
Unit #: [id number] #: [id number] Patient: HOWARD MERCADO [id number] [facility] [address] [place] [address] [id number] I MR#: [id number] NAME: HOWARD MERCADO ROOM: [facility] Age: 41 Sex: M Admission Date: 12/06/2016 : 1975 Attending Physician: Harinder Diehl M.D. Admitting Physician: Harinder Diehl M.D. Primary Care Physician: Primary Care Physician Kellie WHALEY NOTES DATE December 15, 2016 DISCUSSION Mr. Mercado is a 41-year-old white male, who was seen today and chart was reviewed and the case was discussed with the staff. He reports that he is doing fairly well but still has been reporting persistent depressive symptoms, meanwhile, he has been cooperative with the treatment recommendations and he has been taking the medications and tolerating them fairly well. MENTAL STATUS EXAMINATION Middle-aged white male, who was casually dressed with fair personal hygiene and appears to be in no acute distress or discomfort. He was awake and alert on interaction with intact orientation. His mood is anxious and depressed with a congruent affect. His speech is slow and goal-directed. He reports having suicidal ideation but denies any intent or plan. His insight and judgment remain slightly impaired. TREATMENT PLAN 1. We will continue him on his current medications and treatment protocol, and will monitor his response to the medications, and make further adjustments as needed. 2. We will continue to followup. Dictated by... Obie Resendiz/louis TD: 12/16/2016 10:46 JOB #: [id number] Unit #: [id number] #: [id number] Patient: HOWARD MERCADO [facility] PROGRESS NOTES Page 1 of 1 X Harinder Diehl MD PROGRESS NOTE
--- NOTE | ~2016-12-06 | PN ---
Unit #: [id number] #: [id number] Patient: HOWARD HAYES [id number] [facility] [address] [place] [address] [id number] I MR#: [id number] NAME: HOWARD HAYES. ROOM: [facility] Age: 41 Sex: M Admission Date: 12/06/2016 : 1975 Attending Physician: Harinder Deihl M.D. Admitting Physician: Harinder Diehl M.D. Primary Care Physician: Primary Care Physician Kellie WHALEY NOTES DATE OF SERVICE 12/10/2016 DISCUSSION Mr. Hayes is a 41-year-old white male who was seen today. Chart was reviewed and case was discussed with staff. He has been anxious, withdrawn, and rather seclusive to himself. Meanwhile, he has been cooperative with treatment recommendations and has been taking the medications and tolerating them fairly well with no reported side effects. MENTAL STATUS EXAMINATION Middle-aged white male who is casually dressed with fair personal hygiene, appears to be in no acute distress or discomfort. The patient was awake and alert on interaction with intact orientation. His mood is anxious with congruent affect. His speech is slow and goal-directed. He denies any suicidal or homicidal ideations. His insight and judgment remain slightly impaired. TREATMENT PLAN 1. We will continue him on his current medications and treatment protocol. We will monitor his response to medications and make further adjustments as needed. 2. We will continue to follow up. Dictated by... Harinder Diehl M.D. IAA/bzg TD: 12/10/2016 13:17 JOB #: [id number] Unit #: [id number] #: [id number] Patient: HOWARD HAYES [facility] PROGRESS NOTES Page 1 of 1 X Harinder Diehl MD PROGRESS NOTE
--- NOTE | ~2016-12-06 | PN ---
Unit #: [id number] #: [id number] Patient: HOWARD MERCADO [id number] [facility] [address] [place] [address] [id number] MR#: [id number] NAME: HOWARD MERCADO. ROOM: [facility] Age: 41 Sex: M Admission Date: 12/06/2016 : 1975 Attending Physician: Harinder Diehl M.D. Admitting Physician: Harinder Diehl M.D. Primary Care Physician: Primary Care Physician Kellie HURD PROGRESS NOTES DATE 12/11/2016 DISCUSSION Mr. Mercado is a 41-year-old, white male who was seen today and chart was reviewed and case was discussed with the staff. He has been anxious, withdrawn, depressed and rather seclusive to himself with blunted affect and minimal interaction. Meanwhile, he has been taking medications and tolerating them fairly well with no reported side effects. MENTAL STATUS EXAM Middle-aged white male who was casually dressed with fair personal hygiene, appears to be in no acute distress or discomfort. He was awake and alert on interaction with intact orientation. His mood was anxious with congruent affect. His speech was slow and goal directed. He denies any suicidal or homicidal ideation. Also, denies any auditory or visual hallucinations. His insight and judgement remains slightly impaired. TREATMENT PLAN 1. We will continue him on his current medications and treatment protocol. We will monitor his response to the medication and make further adjustments as needed. 2. We will continue to follow up. Dictated by... Obie Resendiz/marcy TD: 12/12/2016 00:06 JOB #: [id number] Unit #: [id number] #: [id number] Patient: HOWARD MERCADO VICKEY PROGRESS NOTES Page 1 of 1 X Harinder Diehl MD PROGRESS NOTE
--- NOTE | ~2016-12-06 | PN ---
Unit #: [id number] #: [id number] Patient: HOWARD MERCADO [id number] [facility] [address] [place] [address] [id number] MR#: [id number] NAME: HOWARD MERCADO. ROOM: [facility] Age: 41 Sex: M Admission Date: 12/06/2016 : 1975 Attending Physician: Harinder Diehl M.D. Admitting Physician: Harinder Diehl M.D. Primary Care Physician: Primary Care Physician Kellie WHALEY NOTES DATE OF SERVICE: 12/08/2016 SUBJECTIVE Mr. Mercado is a 41-year-old white male, who was seen today and chart was reviewed, and case was discussed with the staff. He has been anxious, withdrawn, depressed, and rather seclusive to himself. Meanwhile, he has been cooperative with treatment recommendation and has been taking medications and tolerating them fairly well with no reported side effects. MENTAL STATUS EXAMINATION Middle-aged white male who was casually dressed with fair personal hygiene, appears to be in no acute distress or discomfort. He was awake and alert with intact orientation. His mood was anxious and depressed with a congruent affect. His speech was slow and restricted in content. He reports having suicidal ideation, but denies any homicidal ideations and also denies any auditory or visual hallucinations. His insight and judgment remain slightly impaired. TREATMENT PLAN 1. We will continue on his current medications and treatment protocol. We will monitor his response to medications and make further adjustments as needed. 2. We will continue to follow up. Dictated by... Obie Resendiz/radu TD: 12/09/2016 23:23 JOB #: [id number] Unit #: [id number] #: [id number] Patient: HOWARD MERCADO VICKEY WHALEY NOTES Page 1 of 1 X Harinder Diehl MD PROGRESS NOTE
--- NOTE | ~2016-12-06 | PN ---
Unit #: [id number] #: [id number] Patient: HOWARD MERCADO [id number] [facility] [address] [place] [address] [id number] I MR#: [id number] NAME: HOWARD MERCADO. ROOM: [facility] Age: 41 Sex: M Admission Date: 12/06/2016 : 1975 Attending Physician: Harinder Diehl M.D. Admitting Physician: Harinder Diehl M.D. Primary Care Physician: Primary Care Physician Kellie HURD PROGRESS NOTES DATE OF SERVICE 12/13/2016 DISCUSSION Mr. Mercado is a 41-year-old white male who was seen today. Chart was reviewed and case was discussed with the staff. He has been anxious, withdrawn, and rather seclusive to himself. Meanwhile, he has been cooperative with the treatment recommendations and has been taking the medications and tolerating them fairly well with no reported side effects. MENTAL STATUS EXAMINATION Middle-aged white male who is casually dressed with fair personal hygiene, appears to be in no acute distress or discomfort. The patient was awake and alert on interaction with intact orientation. His mood is anxious with congruent affect. His speech is slow and goal-directed. He reports having suicidal ideations but denies any homicidal ideations. His insight and judgment remain slightly impaired. TREATMENT PLAN 1. We will continue him on his current treatment protocol. We will monitor his response to the medications and make further adjustments as needed. 2. We will continue to follow up. Dictated by... Obie Resendiz/giovanni TD: 12/13/2016 12:37 JOB #: [id number] Unit #: [id number] #: [id number] Patient: HOWARD MERCADO PEABERNADETTE PROGRESS NOTES Page 1 of 1 X Harinder Diehl MD PROGRESS NOTE
--- NOTE | ~2016-12-06 | HP ---
Unit #: [id number] #: [id number] Patient: HOWARD HAYES [id number] [place] [address] [id number] I MR#: [id number] NAME: HOWARD HAYES. ROOM: [facility] Age: 41 Sex: M Admission Date: 12/06/2016 : 1975 Attending Physician: Harinder Diehl M.D. Admitting Physician: Harinder Diehl M.D. Primary Care Physician: Primary Care Physician No HISTORY AND PHYSICAL HISTORY OF PRESENT ILLNESS Patient is a 41-year-old male admitted to [address] [place] [address] on 12/06/2016 for suicidal ideations. PAST MEDICAL HISTORY 1. Obesity. 2. History of DVT and PE. 3. Lung mass. 4. Seizure disorder. 5. History of L2 compression fracture. 6. Hypertension. PAST SURGICAL HISTORY Patient denies. ALLERGIES No known drug allergies. SOCIAL HISTORY He is unemployed and homeless. He reports he has been drinking more alcohol lately. FAMILY HISTORY Noncontributory. REVIEW OF SYSTEMS CONSTITUTIONAL: No fever or chills. HEENT: Denies any sore throat, ear pain or runny nose. CARDIOVASCULAR: Denies chest pain, irregular heart rhythm or palpitations. CHEST: Denies shortness of breath or cough. No hemoptysis. GASTROINTESTINAL: Denies nausea, vomiting, diarrhea or chronic constipation. ENDOCRINE: Denies history of increased thirst or urination. No recent significant weight loss or gain. GENITOURINARY: Denies dysuria, frequency, or hematuria. SKIN: Denies any rashes. HEMATOLOGIC: Denies history of increased bleeding or bruising. MUSCULOSKELETAL: He complains of back pain. NEUROLOGIC: Denies problems with vision or speech. No frequent, severe headaches. No numbness, tingling or weakness in any extremities. Denies loss of bladder or bowel control. CURRENT MEDICATIONS Unit #: [id number] #: [id number] Patient: HOWARD HAYES Please see list of home medications. PHYSICAL EXAMINATION GENERAL: He is awake, alert, oriented, in no acute distress. VITAL SIGNS: Temperature 98.2, heart rate 76, respirations 16, blood pressure 133/77. HEIGHT: 6 feet 5. WEIGHT: 418 pounds. SKIN: Warm and dry without rash or lesion. HEENT: Normocephalic. TMs not viewed. Oral and nasal passages clear. Conjunctivae clear. PERRLA. EOMs intact. NECK: Supple without lymphadenopathy or thyromegaly. HEART: Regular rate and rhythm without murmur. LUNGS: Clear. ABDOMEN: Soft, nontender. : Not done. EXTREMITIES: No evidence of cyanosis, clubbing or edema. Moves all without focal deficit. NEUROLOGICAL: Grossly within normal limits. Cranial Nerves: II: Visual brewer are intact. III, IV AND : Extraocular movements are intact. Pupils are equal, round and reactive to light. V: Facial sensation is grossly normal. VII: Facial movements and expression are normal. VIII: Auditory acuity grossly intact. IX, X: Uvula is midline. Phonation is normal. XI: Patient shrugs shoulders and turns head normally. XII: Tongue protrudes in the midline. Sensory and Motor Function: Sensory and motor sensation is grossly normal. Motor: moves all extremities well. Coordination: Gait is normal. Deep Tendon Reflexes: Intact. IMPRESSION 1. Psychiatric admission. 2. Morbid obesity. 3. History of DVT and pulmonary embolism. 4. Lung mass. 5. Seizure disorder. 6. History of L2 compression fracture causing low back pain. 7. Hypertension. RECOMMENDATIONS PSYCHIATRIC: Per psychiatrist. MEDICAL: No contraindication to participate in facility's activities. MEDICAL PROGNOSIS Fair. MEDICAL CONDITION Stable. Dictated by... Rose Archuleta A.P.R.N. /[facility] Unit #: [id number] #: [id number] Patient: HOWARD HAYES TD: 12/07/2016 18:29 JOB #: [id number] HISTORY AND PHYSICAL Page 1 of 1 X ROSE ARCHULETA APRN HISTORY AND PHYSICAL
--- NOTE | ~2016-12-06 | PN ---
Unit #: [id number] #: [id number] Patient: HOWARD MERCADO [id number] [facility] [address] [place] [address] [id number] MR#: [id number] NAME: HOWARD MERCADO ROOM: [facility] Age: 41 Sex: M Admission Date: 12/06/2016 : 1975 Attending Physician: Harinder Diehl M.D. Admitting Physician: Harinder Diehl M.D. Primary Care Physician: Primary Care Physician Kellie WHALEY NOTES DATE December 09, 2016 DISCUSSION Mr. Mercado is a 41-year-old white male, who was seen today and chart was reviewed and the case was discussed with the staff. He has been anxious, withdrawn, and rather seclusive to himself. Meanwhile, he has been cooperative with the treatment recommendations and he has been taking the medications and tolerating them fairly well with no reported side effects. MENTAL STATUS EXAMINATION Middle-aged white male, who was casually dressed with fair personal hygiene and appears to be in no acute distress or discomfort. He was awake and alert on interaction with intact orientation. His mood is anxious and depressed with a congruent affect. He reports having suicidal ideations but denies any homicidal ideations. His insight and judgment remain slightly impaired. TREATMENT PLAN 1. We will continue him on his current medications and treatment protocol, and will monitor his response to the medications, and make further adjustments as needed. 2. We will continue to followup. Dictated by... Obie Resendiz/louis TD: 12/10/2016 06:40 JOB #: [id number] Unit #: [id number] #: [id number] Patient: HOWARD MERCADO VICKEY PROGRESS NOTES Page 1 of 1 X Harinder Diehl MD PROGRESS NOTE
--- NOTE | ~2016-12-06 | DS ---
Unit #: [id number] #: [id number] Patient: HOWARD HAYES [id number] [facility] [address] [place] [address] [id number] I MR#: [id number] NAME: HOWARD HAYES ROOM: [facility] Age: 41 Sex: M Admission Date: 12/06/2016 : 1975 Discharge Date: 12/16/2016 Attending Physician: Harinder Diehl M.D. Primary Care Physician: Primary Care Physician No DISCHARGE SUMMARY IDENTIFYING DATA Mr. Hayes is a 41-year-old single white male, who is known to me from previous encounters and transferred to us on a 72-hour hold. HISTORY OF PRESENT ILLNESS Please see initial psychiatric evaluation for details. PAST PSYCHIATRIC HISTORY Please see initial psychiatric evaluation for details. PAST MEDICAL HISTORY Please see initial psychiatric evaluation for details. HOSPITAL COURSE The [facility] was oriented to the hospital environment. Routine p.r.n. medications were initiated and he was started back on his home medications and was closely monitored. He was exhibiting significant depressive symptoms and Lexapro was initiated as an antidepressant and he was closely monitored. He was taking medications regularly. He was not showing a therapeutic response and as such medications were adjusted regularly, and Lexapro was increased to 20 mg a day and trazodone was also given to help him sleep. He was cooperative with the treatment recommendations and he was taking his medications regularly and was tolerating them fairly well and able to show a decent therapeutic response with improvement in depression and anxiety and as such it was decided that he will be discharged and will continue treatment on an outpatient basis. DISCHARGE DIAGNOSES Psychiatric: [place] I Major depressive disorder, recurrent, moderate, without psychotic features. [place] II [place] III None. [place] IV Moderate psychosocial stressors. [place] V DISCHARGE MEDICATIONS 1. Lexapro 20 mg a day for depression 2. Trazodone 200 mg at bedtime for sleep CONDITION AT DISCHARGE Unit #: [id number] #: [id number] Patient: HOWARD HAYES Stable. PROGNOSIS Fair. Dictated by... Obie Resendiz/louis TD: 12/18/2016 07:57 JOB #: [id number] DISCHARGE SUMMARY Page 1 of 1 X Harinder Diehl MD DISCHARGE SUMMARY
--- NOTE | ~2016-12-06 | PN ---
Unit #: [id number] #: [id number] Patient: HOWARD MERCADO [id number] [facility] [address] [place] [address] [id number] MR#: [id number] NAME: HOWARD MERCADO. ROOM: [facility] Age: 41 Sex: M Admission Date: 12/06/2016 : 1975 Attending Physician: Harinder Diehl M.D. Admitting Physician: Harinder Diehl M.D. Primary Care Physician: Primary Care Physician Kellie HURD PROGRESS NOTES DATE 12/14/2016 DISCUSSION Mr. Mercado is a 41-year-old white male who was seen today and chart was reviewed and case was discussed with the staff. He has been anxious, withdrawn and rather seclusive to himself. Meanwhile, he has been cooperative with treatment recommendations and has been taking medications and tolerating them fairly well with no side effects. MENTAL STATUS EXAMINATION Middle-aged white male who was casually dressed with fair personal hygiene and appears to be in no acute distress or discomfort. He was awake and alert on interaction with intact orientation. His mood was anxious with congruent affect. His speech is slow and goal-directed. He denies any suicidal or homicidal ideation. His insight and judgement remains slightly impaired. TREATMENT PLAN 1. Will continue on his current treatment protocol. Will monitor his response to the medications and make further adjustments as needed. 2. Will continue to follow up. Dictated by... Obie Resendiz/erik TD: 12/14/2016 18:44 JOB #: [id number] Unit #: [id number] #: [id number] Patient: HOWARD MERCADO VICKEY PROGRESS NOTES Page 1 of 1 X Harinder Diehl MD PROGRESS NOTE
--- NOTE | ~2016-12-06 | PN ---
Unit #: [id number] #: [id number] Patient: HOWARD MERCADO [id number] [facility] [address] [place] [address] [id number] MR#: [id number] NAME: HOWARD MERCADO ROOM: [facility] Age: 41 Sex: M Admission Date: 12/06/2016 : 1975 Attending Physician: Harinder Diehl M.D. Admitting Physician: Harinder Diehl M.D. Primary Care Physician: Primary Care Physician Kellie HURD PROGRESS NOTES DATE 12/12/2016 DISCUSSION Mr. Mercado is a 41-year-old white male who was seen today and chart was reviewed and case was discussed with the staff. He reports persistent depression and anxiety and feelings of hopelessness. Meanwhile, he has been taking medications and tolerating them fairly well but does not feel the medication is effectively controlling his depressive symptoms. MENTAL STATUS EXAMINATION Middle-aged white male who was casually dressed with fair personal hygiene and appears to be in no acute distress or discomfort. He was awake and alert on interaction with intact orientation. His mood was anxious with congruent affect. His speech is slow and goal-directed. He denies any suicidal or homicidal ideations and also denies any auditory or visual hallucinations. His insight and judgement remains slightly impaired. TREATMENT PLAN 1. Will continue on his current medications and treatment protocol. Will monitor his response to the medications and make further adjustments as needed. 2. Will continue to follow up. Dictated by... Obie Resendiz/erik TD: 12/12/2016 19:53 JOB #: [id number] Unit #: [id number] #: [id number] Patient: HOWARD MERCADOBERNADETTE PROGRESS NOTES Page 1 of 1 X Harinder Diehl MD PROGRESS NOTE
--- NOTE | ~2016-12-06 | PA ---
Unit #: [id number] #: [id number] Patient: HOWARD HAYES [id number] [facility] [address] [place] [address] [id number] I MR#: [id number] NAME: HOWARD HAYES ROOM: [facility] Age: 41 Sex: M Admission Date: 12/06/2016 : 1975 Date of Assessment: Attending Physician: Harinder Diehl M.D. Admitting Physician: Harinder Diehl M.D. PSYCHIATRIC ASSESSMENT IDENTIFYING DATA Mr. Hayes is a 41-year-old single white male, who is known to me from previous encounter, who was recently discharged from my care and was transferred back to us on a 72-hour hold. CHIEF COMPLAINT "Suicidal ideation and plan to jump in front of a bus." HISTORY OF PRESENT ILLNESS Mr. Hayes is a 41-year-old white male, who was taken to the Emergency Psychiatric Services at [facility] and he was put on 72 hours hold as the patient presented reporting having suicidal ideation and plan to jump in front of the bus and the patient reports that he is feeling suicidal because he has no support system and "I do not have a place to live." The patient also reports drinking alcohol again, but would not disclose how much, but did report that it was on a daily basis and reports homicidal ideations and was seen to be a significant threat to himself and, therefore, recommendation for inpatient level of care for safety and stabilization was made. The patient was put on 72 hours hold and then was transferred to . SUBSTANCE ABUSE HISTORY The patient does report a history of alcohol abuse and reports that he has been drinking 1 to 2 times a month, three beers at a time and did not appear to be intoxicated, neither did he appear to be in any acute withdrawal symptoms. He also denied any other substance abuse issues. PAST PSYCHIATRIC HISTORY The patient has a history of inpatient psychiatric hospitalization and has been diagnosed and treated for mood disorder, but he has been noncompliant with treatment and is not seeing a psychiatrist, not taking any psychotropic medications. PAST MEDICAL HISTORY The patient's medical history is significant for obesity, grand mal seizures, and history of blood clots in the legs. ALLERGIES No known medication allergies. PERSONAL AND SOCIAL HISTORY A 41-year-old white male, who reports that he is single, unemployed, and essentially homeless, and has poor social support system. Unit #: [id number] #: [id number] Patient: HOWARD HAYES MENTAL STATUS EXAMINATION Middle-aged white male, who was casually dressed with a fair personal hygiene, appears to be in no acute distress or discomfort. He was awake and alert on interaction with intact orientation to time, place, and person. His mood was anxious and depressed with a congruent affect. His speech was slow and goal directed. He reports having suicidal ideations, but denies any homicidal ideations, and also denies any auditory or visual hallucinations. His insight and judgment remain significantly impaired. DIAGNOSTIC IMPRESSION Psychiatric: Major depressive disorder, recurrent, moderate, without psychotic features. Medical: None. Stressors: Moderate psychosocial stressors. TREATMENT PLAN 1. The patient has presented with history of mood disorder, and has been decompensating and will need inpatient hospitalization for safety and stabilization. We will start him back on his home medications. We will adjust the medications and monitor response. 2. Supportive therapy was provided to the patient. 3. Safe, structured, and nourishing environment will be provided. ESTIMATED LENGTH OF STAY 4 to 5 days. ABILITY TO HELP SELF Limited. WILLINGESS TO HELP SELF The patient appears to be willing to help self. STRENGTHS 1. Communicative. 2. Cooperative. PROBLEMS 1. Chronic dysphoric symptoms. 2. Poor social support system. DISCHARGE CRITERIA This will be contingent upon the patient's ability to show resolution of his depression and anxiety and his ability to stay safe to himself, particularly after discharge from the hospital. Dictated by... Obie Resendiz/radu TD: 12/08/2016 03:25 JOB #: [id number] Unit #: [id number] #: [id number] Patient: HOWARD HAYES PSYCHIATRIC ASSESSMENT Page 1 of 1 X Harinder Diehl MD PSYCHIATRIC ASSESSMENT
--- NOTE | ~2016-12-06 | CO ---
Unit #: [id number] #: [id number] Patient: HOWARD HAYES [id number] [place] [address] [id number] I MR#: [id number] NAME: HOWARD HAYES ROOM: [facility] Age: 41 Sex: M Admission Date: 12/06/2016 : 1975 Attending Physician: Harinder Diehl M.D. Consultation Date: 12/12/2016 CONSULTATION REPORT SUBJECTIVE Howard is a 41-year-old who has complained of low back pain after 2 or 3 nights of sleeping on our hospital beds. He denies any numbness, tingling, or weakness in his legs. We have been asked to assess and treat. OBJECTIVE GENERAL: Alert, morbidly obese, no apparent distress. VITAL SIGNS: Blood pressure 142/82, heart rate 80, respirations 16, temperature 98.6, weight 410 pounds, height 6 feet 5 inches. BACK: Negative CVA tenderness. Minimal tenderness along the LS spine and into the right SI joint. NEUROLOGIC: DTRs 2+ and equal. Muscle strength 5/5. Sensory intact. Gait normal. ASSESSMENT Low back strain. PLAN Flexeril 10 mg t.i.d. and Relafen 500 mg one p.o. b.i.d. Dictated by... Tiff Block PDianaA.-C. for Obie Oliveira/radu TD: 12/20/2016 18:55 JOB #: [id number] CONSULTATION REPORT Page 1 of 1 X Tiff Block X CONSULTATION REPORT
[~2016-12-06 13:18] MED LIST changes: +EFFEXOR75 M2; +KEPPRA500 M1 PO; +LORTAB 5-325 M1 EACH PO
[2016-12-08 12:42] LABS: URINE APPEARANCE SL CLOUDY; URINE BILIRUBIN NEG (NEG); URINE BLOOD NEG (NEG); URINE COLOR YELLOW; URINE GLUCOSE NORM (NORM); URINE KETONE NEG (NEG); URINE LEUKOCYTE ESTERASE NEG (NEG); URINE NITRATE NEG (NEG); URINE PROTEIN NEG (NEG); URINE UROBILINOGEN NORM (NORM)
[2016-12-08 13:20] LABS: BASOPHIL% 0.5 % (0-2.5); EOSINOPHIL# 0.1 X10e3 (0-0.7); EOSINOPHIL% 2.8 % (0.0-7.0); HEMATOCRIT 41.8 % (38.0-50.0); HEMOGLOBIN 14.6 gm/dL (13.0-16.0); LYMPHOCYTE# 1.1 X10e3 (1.0-3.5); LYMPHOCYTE% 30.5 % (17.0-45.0); MEAN CELL VOLUME 92.4 FL (83-96); MEAN CORPUSCULAR HEMOGLOBIN 32.2 PG (28-34); MEAN CORPUSCULAR HGB CONC 34.9 g/dL (30-36); MEAN PLATELET VOLUME 7.4 FL (6.5-11.5); MONOCYTE# 0.3 X10e3 (0-1.0); NEUTROPHIL% 57.2 % (40-75); PLATELET COUNT 164 X10e3 (140-420); RED BLOOD COUNT 4.53 X10e (3.90-5.60); WHITE BLOOD COUNT 3.5 X10e3 (4.0-10.5)
[2016-12-08 13:25] LABS: ALBUMIN SERUM 3.8 g/dL (3.5-5.0); BILIRUBIN,TOTAL 0.7 mg/dL (0.2-2.0); BUN/CREATININE RATIO 17.5; CALCIUM SERUM 9.2 mg/dL (8.4-10.2); CREATININE SERUM 0.8 mg/dL (0.6-1.4); POTASSIUM 4.1 mmol/L (3.5-5.1); PROTEIN TOTAL SERUM 6.4 g/dL (6.0-8.3)
[2016-12-08 13:47] LABS: DIFF IND NO
== END 2016-12-16 16:50 | disposition home or self-care (01) | DRG 885 ==
LOC: P2L 18:20 → POF 12-07 09:01 → P2L 12-07 09:04
PROVIDERS: Psychiatry & Neurology Psychiatry
DX: F33.1 Major depressive disorder, recurrent, moderate (principal); R45.851 Suicidal ideations; I10 Essential (primary) hypertension; E66.9 Obesity, unspecified
CPT/HCPCS: 80053; 81003; 85025